=== PATIENT | male | born 1945 | race Caucasian/White ===

== ENCOUNTER → 2017-03-19 | Outpatient (CLI) | payer OTHER ==
[~2017-03-19] VITALS: Ht 185.4 cm; Wt 72.6 kg
[~2017-03-19] MED LIST: CEVIMELINE HCL30 MG PO; LEVOTHYROXIN0.112 M1 PO
--- NOTE | ~2017-03-19 | P ---
[facility] [place] [address] PROCEDURE REPORT Name: THONY DUNHAM [id number] Admission: 03/19/17 Attend Phys: Atif Barahona Discharge: Date of : 43 Report #: [id number] THIS REPORT FOR: //name// CC: Atif Leslie PROCEDURE PERFORMED: PEG tube removal and replacement at the bedside. HISTORY OF PRESENT ILLNESS: The patient is a 71-year-old male with a history of head and neck cancer and status post resection and radiation. He is PEG tube dependent for nutrition. In the past, we have proceeded with upper endoscopies and PEG tube removal and replacement; however, he has a known tight proximal esophageal stricture and during the last upper endoscopy with removal and replacement, there was a mucosal tear at the stricture site. Therefore, we discussed today instead of proceeding with an upper endoscopy to replace the PEG tube at the bedside and he was in agreement. DESCRIPTION OF PROCEDURE: The PEG tube was withdrawn through the PEG stoma with simple traction without difficulty. There was a small amount of blood noted after removal. Next a new 20-Indonesian bumper replacement of PEG was then inserted through the same fistula at the bedside without difficulty. This was then secured with an outside flange. The patient tolerated the exchange without difficulty. A 4 x 4 dressing was then placed over the area. IMPRESSION: Status post removal of old PEG and replacement of new PEG at the bedside as described above. RECOMMENDATIONS: Okay to start using new PEG at this time. Thank you for allowing me to participate in his care. <ELECTRONICALLY SIGNED> By: Atif Luz MD 03/23/17 1221 0946 2226 Atif Luz MD /nt
== END | disposition home or self-care (01) ==
LOC: GI 07:29
DX: Z43.1 Encounter for attention to gastrostomy (principal); F32.9 Major depressive disorder, single episode, unspecified; Z98.890 Other specified postprocedural states; Z87.891 Personal history of nicotine dependence; Z85.46 Personal history of malignant neoplasm of prostate; Z85.828 Personal history of other malignant neoplasm of skin; Z85.818 Personal history of malignant neoplasm of other sites of lip, oral cavity, and pharynx; Z88.2 Allergy status to sulfonamides

== ENCOUNTER → 2018-01-26 | Outpatient (CLI) | payer OTHER ==
[~2018-01-26] VITALS: Ht 185.4 cm; Wt 74.8 kg
[~2018-01-26] MED LIST changes: +SUPER BETA PROSTATE PO
--- NOTE | ~2018-01-26 | P ---
[facility] [place] [address] PROCEDURE REPORT Name: THONY DUNHAM [facility] #: [facility] [id number] Admission: 01/26/18 Attend Phys: Atif Barahona Discharge: Date of : 43 Report #: [id number] THIS REPORT FOR: //name// CC: Nany Luz Dayan Leslie DATE OF SERVICE: 01/26/2018 PROCEDURE PERFORMED: PEG removal with replacement at bedside. HISTORY OF PRESENT ILLNESS: The patient is a 72-year-old male with a history of head and neck cancer, status post surgery and radiation with a known tight esophageal stricture. He is PEG tube dependent for nutrition. His PEG tube is worn out needs to replace. He also has skin excoriation around the PEG tube site with leakage apparently. We have attempted to replace the PEG via upper endoscopy in the past; however, this was high risk due to his tight stricture and causing potential for significant esophageal tear or perforation due to his tight stricture; therefore, the plan is to replace the PEG tube at the bedside today. PHYSICAL EXAMINATION: CARDIOVASCULAR: Regular rate and rhythm. CHEST: Clear to auscultation bilaterally. ABDOMEN: Soft. He is nontender except around the PEG tube site. At approximately 2 cm in diameter there is a skin excoriation. DESCRIPTION OF PROCEDURE: The PEG tube was removed with a simple traction. There was some mild bleeding. Next, using a replacement bumper 20-Czech PEG, I was able to replace this through the PEG tube fistula without difficulty. Pressure was held in place. No further bleeding was noted. IMPRESSION: Status post PEG tube removal and replacement. RECOMMENDATIONS: 1. Okay to start using PEG tube today. 2. Because of the patient's skin excoriation, we will have Wound Care evaluate. Thank you for allowing me to participate in his care. <ELECTRONICALLY SIGNED> By: Atif Luz MD 01/29/18 0854 1133 1625 Atif Luz MD /nt
== END | disposition home or self-care (01) ==
LOC: GI 10:10
DX: Z43.1 Encounter for attention to gastrostomy (principal); K22.2 Esophageal obstruction; Z85.89 Personal history of malignant neoplasm of other organs and systems; Z87.891 Personal history of nicotine dependence; Z85.828 Personal history of other malignant neoplasm of skin; Z85.46 Personal history of malignant neoplasm of prostate; Z98.890 Other specified postprocedural states; Z88.2 Allergy status to sulfonamides

== ENCOUNTER → 2018-03-01 | Outpatient (CLI) | payer OTHER | LOC: HYPER 02-15 13:16 | DX: T81.89XA Other complications of procedures, not elsewhere classified, initial encounter (principal); L30.9 Dermatitis, unspecified; K12.1 Other forms of stomatitis; L24.9 Irritant contact dermatitis, unspecified cause; K94.23 Gastrostomy malfunction; Z85.46 Personal history of malignant neoplasm of prostate; Y83.8 Other surgical procedures as the cause of abnormal reaction of the patient, or of later complication, without mention of misadventure at the time of the procedure ==

== ENCOUNTER → 2018-03-15 | Outpatient (CLI) | payer OTHER | LOC: HYPER 06:42 | DX: T81.89XD Other complications of procedures, not elsewhere classified, subsequent encounter (principal); L30.9 Dermatitis, unspecified; K12.1 Other forms of stomatitis; K94.20 Gastrostomy complication, unspecified; K94.23 Gastrostomy malfunction; Z85.46 Personal history of malignant neoplasm of prostate; Z87.891 Personal history of nicotine dependence; Y83.8 Other surgical procedures as the cause of abnormal reaction of the patient, or of later complication, without mention of misadventure at the time of the procedure ==

== ENCOUNTER → 2018-03-22 | Outpatient (CLI) | payer OTHER | LOC: HYPER 06:44 | DX: T81.89XD Other complications of procedures, not elsewhere classified, subsequent encounter (principal); L30.9 Dermatitis, unspecified; K94.20 Gastrostomy complication, unspecified; K12.1 Other forms of stomatitis; K94.23 Gastrostomy malfunction; B36.9 Superficial mycosis, unspecified; Z85.46 Personal history of malignant neoplasm of prostate; Z87.891 Personal history of nicotine dependence; Y83.8 Other surgical procedures as the cause of abnormal reaction of the patient, or of later complication, without mention of misadventure at the time of the procedure ==

== ENCOUNTER → 2018-04-12 | Outpatient (CLI) | payer OTHER | LOC: HYPER 06:49 | DX: T81.89XD Other complications of procedures, not elsewhere classified, subsequent encounter (principal); L30.9 Dermatitis, unspecified; K12.1 Other forms of stomatitis; K94.23 Gastrostomy malfunction; B36.9 Superficial mycosis, unspecified; Z85.46 Personal history of malignant neoplasm of prostate; Z87.891 Personal history of nicotine dependence; Y83.8 Other surgical procedures as the cause of abnormal reaction of the patient, or of later complication, without mention of misadventure at the time of the procedure ==

== ENCOUNTER → 2018-04-26 | Outpatient (CLI) | payer OTHER | LOC: HYPER 06:49 | DX: T81.89XD Other complications of procedures, not elsewhere classified, subsequent encounter (principal); K12.1 Other forms of stomatitis; L30.9 Dermatitis, unspecified; K94.20 Gastrostomy complication, unspecified; B36.9 Superficial mycosis, unspecified; L03.311 Cellulitis of abdominal wall; Z85.46 Personal history of malignant neoplasm of prostate; Z87.891 Personal history of nicotine dependence; Y83.8 Other surgical procedures as the cause of abnormal reaction of the patient, or of later complication, without mention of misadventure at the time of the procedure ==

== ENCOUNTER → 2019-06-14 | Outpatient (CLI) | payer OTHER ==
[~2019-06-14] VITALS: Ht 185.4 cm; Wt 74.8 kg
--- NOTE | 2019-06-16 11:03 | P ---
[facility] [place] [address] PROCEDURE REPORT Name: THONY DUNHAM Room #: REG Maria Alejandra [place]#: [id number] Admission: 06/14/19 Attend Phys: Atif Barahona Discharge: Date of : 43 Report #: [id number] THIS REPORT FOR: //name// CC: CHEN DON DO Atif Luz DATE OF SERVICE: 06/14/2019 PROCEDURE PERFORMED: Upper endoscopy with removal of old PEG tube and replacement with new PEG tube. HISTORY OF PRESENT ILLNESS: The patient is a 73-year-old male with previous history of head and neck cancer, status post radiation and surgery with a history of tight stricture. He is completely PEG tube dependent on nutrition. His PEG tube is now old and needs to be replaced. Previously, this was done at the bedside with a bumper PEG; however, these are not available anymore. I gave the patient an option of a balloon replacement at the bedside; however, these are stiff and there is a possibility of the balloon popping which has happened to him in the past versus proceeding with an upper endoscopy and replacement with a bumper PEG. I explained that he is at an increased risk due to his head and neck cancer and scarring. We have replaced it this way in the past, but it has caused mucosal tears when the bumper is passed through his esophagus. He understood both procedures and the risks and benefits and decided to proceed with an upper endoscopy with PEG bumper replacement. DESCRIPTION OF PROCEDURE: The risks and benefits of the procedure were explained to the patient, those risks including but not limited to bleeding, perforation, the risk of sedation. He understood these risks and gave informed consent. Again, we also discussed the risk of significant mucosal tear of his esophagus at the stricture site because of his previous head and neck surgery and radiation and scarring. Sedation was given using ketamine and propofol per anesthesia. Next, using a standard Olympus upper endoscope, the scope was placed in the patient's mouth and advanced under direct vision through the esophagus, stomach and into the second portion of the duodenum. There was a narrowing in the proximal esophagus again; however, the scope did pass through here without resistance. The mid and distal esophagus was normal, although there was some narrowing in the distal esophagus as well. No evidence of esophagitis. Overall, the gastric mucosa was normal. There was some fluid within the stomach. This was aspirated away. The old PEG tube bumper was noted to be in good position in the mid body. The antrum was normal. The pylorus was normal and patent. The duodenal bulb, first and second portion were all normal. The scope was then brought back up into the patient's stomach, and the old PEG was removed by simple traction through the PEG fistula. Next, a blue guidewire was inserted through the fistula and grasped with a snare through the endoscope. The scope and wire were then brought back up to the patient's mouth. At this [address] [address] PROCEDURE REPORT Name: THONY DUNHAM Room #: GERARDO [place]#: [id number] Admission: 06/14/19 Attend Phys: Atif Barahona Discharge: Date of : 43 Report #: [id number] point, a 20-Romanian PEG tube was secured to the blue guidewire and using a pull technique was put into position without difficulty. The scope was reintroduced into the patient's stomach. There was evidence of mucosal tear primarily in the distal esophagus, not in the proximal esophagus as much, but there was some bright red blood. I waited several minutes. There was no further bleeding noted. The PEG tube bumper was again in good position in the mid body at the previous site. At this point, the scope was then withdrawn. The PEG tube was secured to the anterior abdominal wall. He also has a small amount of granulation tissue around the PEG tube, and this was treated with 3 silver nitrate sticks. The procedure was terminated. The patient tolerated the procedure well. IMPRESSION: 1. Status post removal of old PEG tube, replacement with new PEG tube. This did cause a mucosal tear in the distal esophagus as well as a mild tear in the proximal esophagus. 2. Treatment of granulation tissue around the PEG tube site with silver nitrate. RECOMMENDATIONS: Okay to start using PEG tube later today. Thank you for allowing me to participate in his care. <ELECTRONICALLY SIGNED> By: Atif Luz MD 06/16/19 1103 1119 2244 Atif Luz MD /nt
== END | disposition home or self-care (01) ==
LOC: GI 08:30
DX: Z43.1 Encounter for attention to gastrostomy (principal); Z85.819 Personal history of malignant neoplasm of unspecified site of lip, oral cavity, and pharynx; E03.9 Hypothyroidism, unspecified; Z85.46 Personal history of malignant neoplasm of prostate; Z85.3 Personal history of malignant neoplasm of breast; Z85.828 Personal history of other malignant neoplasm of skin; Z98.890 Other specified postprocedural states; Z79.899 Other long term (current) drug therapy; Z88.2 Allergy status to sulfonamides; Z87.891 Personal history of nicotine dependence
CPT/HCPCS: 62110; 62900

== ENCOUNTER 2020-02-06 21:30 | Inpatient (IN) | payer OTHER ==
[~2020-02-06] VITALS: Ht 185.4 cm; Wt 73.9 kg
[2020-02-06 21:35] VITALS: BP 118/71
[2020-02-06 22:32] LABS: ABSOLUTE NEUTROPHILS 4.9 thou/uL (1.4-8.2); BASOPHILS 0.8 % (0.0-2.0); EOSINOPHILS 0.2 % (0.0-3.0); HEMATOCRIT 47.8 % (42.0-52.0); HEMOGLOBIN 15.9 gm/dL (14.0-18.0); LYMPHOCYTES 8.4 % (24.0-44.0); MCHC 33.2 g/dL (28.0-37.0); MCV 90.4 fL (80.0-100.0); MONOCYTES 2.2 % (1.0-8.0); PLATELET COUNT 183 thou/uL (150-400); POLYS 88.4 % (36.0-66.0); RBC 5.29 mil/uL (4.50-6.00); RDW 13.3 % (10.5-14.5); WBC 5.6 thou/uL (4.0-11.0)
[2020-02-06 22:33] LABS: ANION GAP 9 mmol/L (7-16); BUN 23 mg/dL (7-18); CALCIUM 9.1 mg/dL (8.5-10.1); CHLORIDE 103 mmol/L (98-107); CO2 28 mmol/L (21-32); CREATININE 1.1 mg/dL (0.7-1.3); GLUCOSE 159 mg/dL (74-106); POTASSIUM 3.7 mmol/L (3.5-5.1); SODIUM 140 mmol/L (136-145)
[2020-02-06 22:43] LABS: ALBUMIN 3.9 g/dL (3.4-5.0); MAGNESIUM 1.8 mg/dL (1.8-2.4); SGOT 29 U/L (15-37); SGPT 23 U/L (30-65); TOTAL BILIRUBIN 0.9 mg/dL (<0.1-1.0); TOTAL PROTEIN 7.8 g/dL (6.4-8.2); TROPONIN-I <0.06 ng/mL (<0.06)
[2020-02-06 22:43] LABS: BE(vivo) 1.1 mmol/L (-2 to +3); HCO3 26.9 mmol/L (22.0-26.0); PCO2 46.8 mmHg (35.0-45.0); PO2 65.6 mmHg (80.0-100.0); pH 7.377 (7.360-7.450); sO2 92.4 % (92.0-98.0)
[2020-02-07] VITALS (17 sets, daily range): BP systolic 106–187; BP diastolic 64–98
--- NOTE | 2020-02-07 00:39 | NUR ---
SHIRT CLOSER CALLED IN PATIENT UNIT TO GIVE REPORT TO RECIEVING NURSE, WAS TOLD NURSE (TYRONE) WAS PERFORMING PT CARE AND WILL RETURN CALL CONCHITA.
[2020-02-07 01:12] LABS: URINE BILIRUBIN NEGATIVE (Negative); URINE BLOOD NEGATIVE (Negative); URINE CLARITY CLEAR; URINE COLOR YELLOW; URINE GLUCOSE-RANDOM* NEGATIVE (Negative); URINE KETONES NEGATIVE (Negative); URINE LEUKOCYTES-REFLEX NEGATIVE (Negative); URINE NITRITE-REFLEX NEGATIVE (Negative); URINE PROTEIN (DIPSTICK) NEGATIVE (Negative); URINE UROBILINOGEN 0.2 E.U./dl (0.2-1.0)
[2020-02-07 06:43] LABS: HEMATOCRIT 39.5 % (42.0-52.0); MCH 30.2 pg (26.0-34.0); MCHC 33.2 g/dL (28.0-37.0); RBC 4.34 mil/uL (4.50-6.00); RDW 13.4 % (10.5-14.5); WBC 2.8 thou/uL (4.0-11.0)
[2020-02-07 06:46] LABS: CALCIUM 8.6 mg/dL (8.5-10.1); CREATININE 1.2 mg/dL (0.7-1.3); HEMOGLOBIN 13.1 gm/dL (14.0-18.0)
[2020-02-07 08:15] LABS: BE(vivo) -3.7 mmol/L (-2 to +3); HCO3 21.4 mmol/L (22.0-26.0); PCO2 39.2 mmHg (35.0-45.0); PO2 207.5 mmHg (80.0-100.0); pH 7.355 (7.360-7.450); sO2 99.4 % (92.0-98.0)
[2020-02-07 08:55] LABS: ATYPICAL LYMPHS 4 %; METAMYELOCYTES 4 %
[2020-02-07 08:57] LABS: PLATELET ESTIMATE SLIGHTLY DECREASED
[2020-02-07 09:51] LABS: PLATELET COUNT 106 thou/uL (150-400)
--- NOTE | 2020-02-07 11:34 | NUR ---
LAB CALLED WITH A DELTA VALUE FOR PLATELETS. VALUE NOTED AND DR. WOODSON WAS ON THE UNIT AND MADE AWARE .
--- NOTE | 2020-02-07 12:49 | NUR ---
0900- PT'S PHILIP DUNHAM CALLED THIS AM AND GOT UPDATE ON PT.
--- NOTE | 2020-02-07 13:26 | NUR ---
Chart reviewed and case discussed with the care team. Unable to speak with the pt at this time as he is transfering out of ICU to . His o2 needs have improved and he is now on 3liters of O2 per nc. Pt is Covid pending and positive Flu A. The ICU nurse has updated the pt's Amisha twice today on his progress and transfer to . She has provided cm contact infor should pt's spouse have any questions or concerns regarding his dc planning needs. Nursing reports the pt is A&ox4 and indep with gait and adl's at this time. He has a hx of head/neck cancer s/p resection with a permenent peg tube d/t dysphagia. The pt manages his own bolus tube feedings with two cans of Ensure plus TID. His recently had the flu A and was not tested for Covid 19. She did not require hospital care and is doing well at this time. Will follow along and reattempt to touch base with the pt again prior to dc.
--- NOTE | 2020-02-07 13:37 | NUR ---
PT TRANSFERED. TO ROOM 355. REPORT CALLED TO PRITESH PINA. PT'S PHILIP CALLED AND UPDATED
--- NOTE | 2020-02-07 14:27 | EKG ---
[facility] [place] [address] ELECTROCARDIOGRAM REPORT Name: THONY DUNHAM Room #: [facility]- ADM IN M.R.#: [id number] Admission: 02/06/20 Attend Phys: Abdifatah Astudillo MD Discharge: Date of : 43 Report #: [id number] THIS REPORT FOR: cc: RAINA - No family physician/PCP RAINA - No family physician/PCP Jone Garcia MD [facility] THIS REPORT FOR: //name// [facility] ED Test Date: 2020-02-06 Test Time: 21:53:46 Pat Name: THONY DUNHAM Department: Room: [facility] Gender: M Sort Line: RGITHAIDEANNA : 1945 Requested By: Dagoberto Byrd Order Number: [id number] MD: Jone Garcia Measurements Intervals [place] Rate: 122 P: 52 NV: 162 QRS: 80 QRSD: 125 T: 6 QT: 332 QTc: 473 Interpretive Statements Sinus tachycardia Right bundle branch block Compared to ECG 02/29/2004 09:59:22 Right bundle-branch block now present Prolonged QT interval no longer present Electronically Signed On 02-07-2020 14:26:27 CDT by Jone Garcia [email or web address] <ELECTRONICALLY SIGNED> By: Jone Garcia MD, [facility] 02/07/20 1426 2153 215 Jone Garcia MD, [facility] /EPI
--- NOTE | 2020-02-07 14:37 | NUR ---
PATIENT ADMITTED TO ROOM AT THIS TIME. HE IS ALERT ORINTED X4. DENIES PAIN OR DISTRESS. RESPIRATIONS ARE NON LABORED. ON OXYGEN 3L AND O2 SAT HAS REMAINED ABOVE 94%. PLEASANT WITH CARES. WILL CONT WITH PLAN OF CARES.
[2020-02-08 02:07] LABS: GLYCOHEMOGLOBIN (HGB A1C) 5.3 % (4.8-5.6)
--- NOTE | 2020-02-08 06:49 | NUR ---
ASSESSMENT: PT REMAIN ALERT AND ORIENT TIMES THREE. PT APPEARS A LITTLE DEPRESSED WITH BEING "MOVED AROUND THE HOSPITAL". VSS, AFEBRILE, COVID-[address] PER MONITOR, HR 100. PEG TUBE PATENT, SLOW PROGRESS, WILL CONTINUE TO MONITOR.
[2020-02-08 07:02] VITALS: BP 137/83
[2020-02-08 08:28] LABS: HEMATOCRIT 38.5 % (42.0-52.0); HEMOGLOBIN 12.9 gm/dL (14.0-18.0); MCH 30.1 pg (26.0-34.0); MCHC 33.6 g/dL (28.0-37.0); MCV 89.5 fL (80.0-100.0); PLATELET COUNT 102 thou/uL (150-400); RDW 13.4 % (10.5-14.5); WBC 5.6 thou/uL (4.0-11.0)
[2020-02-08 08:35] LABS: ALBUMIN 2.6 g/dL (3.4-5.0); CALCIUM 9.3 mg/dL (8.5-10.1); CREATININE 0.8 mg/dL (0.7-1.3); TOTAL BILIRUBIN 0.5 mg/dL (<0.1-1.0); TOTAL PROTEIN 6.2 g/dL (6.4-8.2)
[2020-02-08 08:57] LABS: ABSOLUTE NEUTROPHILS 4.4 thou/uL (1.4-8.2); METAMYELOCYTES 2 %
[2020-02-08 08:58] LABS: ANISOCYTOSIS SLIGHT
--- NOTE | 2020-02-08 10:05 | EKG ---
[facility] [place] [address] ELECTROCARDIOGRAM REPORT Name: THONY DUNHAM Room #: 218- ADM IN M.R.#: [id number] Admission: 02/06/20 Attend Phys: Abdifatah Astudillo MD Discharge: Date of : 43 Report #: [id number] THIS REPORT FOR: cc: RAINA - Jody family physician/PCP RAINA - No family physician/PCP Jone Garcia MD [facility] THIS REPORT FOR: //name// [facility] Test Date: 2020-02-08 Test Time: 09:34:14 Pat Name: THONY DUNHAM Department: Room: 218 Gender: M Director Of Enrollment: James RIZVI : 1945 Requested By: Abdifatah Astudillo Order Number: [id number] MD: Jone Garcia Measurements Intervals [place] Rate: 114 P: [place]: QRS: 51 QRSD: 78 T: 39 QT: 332 QTc: 458 Interpretive Statements Atrial fibrillation Early R wave progression Compared to ECG 02/06/2020 21:53:46 Sinus tachycardia no longer present Right bundle-branch block no longer present Electronically Signed On 02-08-2020 10:03:30 CDT by Jone Garcia [email or web address] <ELECTRONICALLY SIGNED> By: Jone Garcia MD, [facility] 02/08/20 1003 0934 0934 Jone Garcia MD, [facility] /EPI
[2020-02-08 11:32] VITALS: BP 133/73
--- NOTE | 2020-02-08 11:38 | 2DMMODE ---
[facility] [place] [address] 2 D/M-MODE ECHOCARDIOGRAM Name: THONY DUNHAM Room #: 218-P ADM IN M.R.#: [id number] Admission: 02/06/20 Attend Phys: Abdifatah Astudillo MD Discharge: Date of : 43 Report #: [id number] THIS REPORT FOR: cc: FAM - No family physician/PCP FAM - No family physician/PCP Stefan Cuevas MD ~ APPROVED REPORT Study performed: 02/08/2020 10:42:47 EXAM: Comprehensive 2D, Doppler, and color-flow Echocardiogram Patient Location: Bedside Room #: 218 Status: routine BSA: 1.99 HR: 120 bpm BP: 137/83 mmHg Rhythm: Atrial Fibrillation Other Information Study Quality: Good Indications Atrial Fibrillation 2D Dimensions RVDd: 25.63 mm IVSd: 10.79 (7-11mm) LVOT Diam: 21.40 (18-24mm) LVDd: 42.68 mm PWd: 11.29 (7-11mm) Ascending Ao: 35.09 (22-36mm) LVDs: 31.55 (25-40mm) Aortic Root: 35.56 mm Volumes Left Atrial Volume (Systole) Single Plane 4CH: 35.13 mL Single Plane 2CH: 30.88 mL LA ESV Index: 19.00 mL/m2 Aortic Valve AoV Peak Yazan.: 1.63 m/s AO Peak Gr.: 16.02 mmHg LVOT Max P.93 mmHg LVOT Max V: 1.39 m/s SHIKHA Vmax: 3.07 cm2 [facility] [address] [place] [address] 2 D/M-MODE ECHOCARDIOGRAM Name: THONY DUNHAM Room #: 218-P ADM IN ..#: [id number] Admission: 02/06/20 Attend Phys: Abdifatah Astudillo MD Discharge: Date of : 43 Report #: [id number] Mitral Valve MV Decel. Time: 189.28 ms MV E Max Yazan.: 1.33 m/s Pulmonary Valve PV Peak Yazan.: 0.99 m/s PV Peak Gr.: 3.92 mmHg Tricuspid Valve TR Peak Yazan.: 2.34 m/s TR Peak Gr.: 22.00 mmHg Left Ventricle The left ventricle is normal size. There is normal LV segmental wall motion. There is normal left ventricular wall thickness. Left ventricular systolic function is normal. LVEF is 60%. This study is not technically sufficient to allow evaluation of the LV diastolic function due to atrial fibrillation. Right Ventricle The right ventricle is normal size. The right ventricular systolic function is normal. Atria The left atrium size is normal. The right atrium size is normal. Aortic Valve The aortic valve is normal in structure. Leaflets are thickened and calcified. No aortic regurgitation is present. There is no aortic valvular stenosis. Mitral Valve The mitral valve is normal in structure. Moderate mitral annular calcification. Trace mitral regurgitation. No evidence of mitral valve stenosis. Tricuspid Valve The tricuspid valve is normal in structure. Trace tricuspid regurgitation. Estimated PAP is 22mmHg plus the right atrial pressure. Pulmonic Valve Pulmonic valve is not well visualized. Great Vessels The aortic root is normal in size. The ascending aorta is normal in [facility] [address] [place] [address] 2 D/M-MODE ECHOCARDIOGRAM Name: THONY DUNHAM Room #: 218-P [facility] IN [facility]#: [id number] Admission: 02/06/20 Attend Phys: Abdifatah Astudillo MD Discharge: Date of : 43 Report #: [id number] size. IVC is not well visualized. Pericardium There is no pericardial effusion. <Conclusion> The left ventricle is normal size. There is normal left ventricular wall thickness. Left ventricular systolic function is normal. The right ventricle is normal size. The left atrium size is normal. The aortic valve is normal in structure. Leaflets are thickened and calcified. The mitral valve is normal in structure. Moderate mitral annular calcification. Trace tricuspid regurgitation. Estimated PAP is 22mmHg plus the right atrial pressure. <ELECTRONICALLY SIGNED> By: Stefan Cuevas MD 02/08/20 1136 1136 1136 Stefan Cuevas MD /INF
[2020-02-08 17:24] VITALS: BP 152/69
--- NOTE | 2020-02-08 18:35 | NUR ---
RECEIVED PT'S CARE AROUND 0720; PT. ON BED; AOX4; PT. POSITIVE FOR INFLUENZA A; PT. NO IN ISOLATION; ISOLATION CAR & SIGNED PUT OUTSIDE OF ROOM; AROUND 0840 PT'S HR ON ELEVATED; 130s-150s; EKG ORDERED PER PROTOCOL; PHYSICIAN PAGED; ORDERS RECEIVED; DR. WEISS ROUNDING; ORDERS RECEIVED; IV MEDICATION GIVEN; HR DECREASE TO 110s; SBP ON THE 130s; AM MEDICATION GIVEN; NO C/O PAIN; AROUND NOON HEART MONITOR SHOWED SR; DR. TAYLOR NOTIFIED DURING ROUNDING; MONITORING; FAMILY, & SON, UPDATE ABOUT PT'S HEALTH; ST. UNDERSTANDING; ENSURANCE GIVEN THROUGH FEEDING TUBE AROUND 1100 & 1700; REFUSED EARLY ON THE AFTERNOON; EDUCATED ABOUT FALL PREVENTION; ST. UNDERSTANDING; ASSESSMENT CHARGED; FOLLOWING POC; WILL PASS ON REPORT;
[2020-02-08 19:38] VITALS: BP 159/68
[2020-02-09 04:20] VITALS: BP 143/83
[2020-02-09 05:01] LABS: CALCIUM 8.8 mg/dL (8.5-10.1); CREATININE 0.8 mg/dL (0.7-1.3); POTASSIUM 3.8 mmol/L (3.5-5.1)
[2020-02-09 05:26] LABS: HEMATOCRIT 37.2 % (42.0-52.0); HEMOGLOBIN 12.6 gm/dL (14.0-18.0); MCH 30.5 pg (26.0-34.0); MCHC 33.9 g/dL (28.0-37.0); MCV 89.9 fL (80.0-100.0); RBC 4.14 mil/uL (4.50-6.00); RDW 13.5 % (10.5-14.5); WBC 6.9 thou/uL (4.0-11.0)
--- NOTE | 2020-02-09 06:42 | NUR ---
PROGRESS PT A/O X4 UP WITH SBA GAIT STEADY. VSS. PEG TUBE INTACT FLUSHES WITHOUT DIFFICULTY. STOMACH CONTENTS CHECKED TUBE FEED NOTED IN MODERATE QUANTITIES . PT BOLUS' SELF QID 2 BOTTLES OF ENSURE AND FLUSH WATER TO FOLLOW GIVEN INDEPENDENTLY BY PT. HAS BEEN SELF CARING FOR HIS PEG TUBE FOR 17 YEARS. IV ANTIBIOTICS ADMINISTERED ORDERED, PT DENIES PAIN, ON 1 TO 3 LITERS OF O2 TITRATED DOWN TO 1 LITER. PT HOPES TO DC HOME TODAY.
[2020-02-09 07:30] VITALS: BP 133/52; BP 138/71; BP 139/71
--- NOTE | 2020-02-09 12:08 | NUR ---
Pt is progressing and may be dc'd to home later today. He is weaning off o2 and up ad vanesa in his room. No dc needs noted at this time.
[2020-02-09 16:30] VITALS: BP 127/73
--- NOTE | 2020-02-09 18:06 | NUR ---
RECEIVED PT'S CARE AROUND 0720; PT. ON BED; AOX4; DURING AM ASSESSMENT NO C/O PAIN; ST ON THE MONITOR; AFIB; SCHEDULED MEDICATION GIVEN; DR. TAYLOR NOTIFIED DURING ROUNDING; ORDERS ON PLACED; INCREASE COARSE & WHEEZING SOUND OVER LUNGS DURING ASSESSMENT; DR. WEISS NOTIFIED DURING ROUNDING; ORDERS RECEIVED; IS ORDERED PER HOSPITALIST; REFUSED ENSURANCE FEEDING DURING AM ASSESSMENT & AROUND 1100; HAD ENSURANCE EARLY ON THE AFTERNOON; REFUSED IT AT 1730; ABLE TO AMBULATE WITHOUT ASSISTANCE; EDUCATED ABOUT FALL PREVENTIONS; ST. UNDERSTANDING; 02 TITRATE TO 1L; 02 SAT ABOVE 93%; MONITORING; ASSESSMENT CHARGED; FOLLOWING POC; WILL PASS ON REPORT;
[2020-02-09 22:10] VITALS: BP 124/70
--- NOTE | 2020-02-10 05:01 | NUR ---
NO EVENTS OVERNIGHT. PT SLEPT WELL. DENIES PAIN. DENIES NAUSEA/ VOMITING. VSS. PT REFUSED ENSURE PEG TUBE FEEDING LAST NIGHT. NO OTHER C/O. WILL CONTINUE TO MONITOR.
[2020-02-10 05:23] VITALS: BP 123/76
[2020-02-10 05:58] LABS: HEMATOCRIT 37.7 % (42.0-52.0); HEMOGLOBIN 12.7 gm/dL (14.0-18.0); MCH 30.1 pg (26.0-34.0); MCHC 33.7 g/dL (28.0-37.0); MCV 89.4 fL (80.0-100.0); RBC 4.22 mil/uL (4.50-6.00); RDW 13.4 % (10.5-14.5); WBC 6.7 thou/uL (4.0-11.0)
[2020-02-10 06:13] LABS: CALCIUM 9.3 mg/dL (8.5-10.1); CREATININE 0.8 mg/dL (0.7-1.3); POTASSIUM 3.9 mmol/L (3.5-5.1)
[2020-02-10 07:50] VITALS: BP 152/80
[2020-02-10 10:40] VITALS: BP 147/80
--- NOTE | 2020-02-10 15:43 | NUR ---
Assumed pt care at 7am.Pt in bed resting with o2 on at 1 Liter nc.Assessment completed.vss.Pt tolerated med with bolus tube feeding.Dr Li here,order noted.Pt will possibly dc in am if stable.No verbal c/o at present.Will continue to monitor.
[2020-02-10 16:00] VITALS: BP 151/74
[2020-02-10 20:42] VITALS: BP 127/71
[2020-02-10 20:43] VITALS: BP 127/71
--- NOTE | 2020-02-11 03:23 | NUR ---
ASSUMED CARE 1900. PT LAERT AND ORIENTED. VS. PT FLAT AFFECT. REFUSED ENSURE TUBE FEEDING AT HS. DENIES PAIN. HR CONTROLLED. NO CHEST PAIN. REMAINS IN SR. WILL CONTINUE TO MONITOR.
[2020-02-11 05:00] VITALS: BP 164/79
[2020-02-11 07:29] VITALS: BP 158/77
[2020-02-11 16:08] VITALS: BP 168/77
[2020-02-11 17:00] VITALS: BP 147/76
--- NOTE | 2020-02-11 17:58 | NUR ---
ASSUMED CARE PT SHIFT CHANGE. ASSESSMENT CHARTED. MEDS GIVEN PER DEC. PT ALERT AND ORIENTED. VSS. DENIES PAIN. O2 SATS WNL ON 2-4L. REST AND EXERCISE PERFORMED PER RT, PT REQUIRING O2 2L AT REST AND 4L WITH ACTIVITY. DENIES SOB. SR ON MONITOR. MEDS GIVEN PER TUBE. ENSURE GIVEN PER TUBE, PT TOLERATING FAIR. PT DID NOT WANT ENSURE CANS FOR LUNCH OR DINNER. TAMIFLU GIVEN PER ORDERS. PT HAD LOW GRADE FEVER- TYLENOL GIVEN-- FEVER RESOLVED. PT UP AD SACHIN IN ROOM TOLERATING WELL. HOPEFUL TO DC HOME TOMORROW. CONTINUING TO MONITOR FOR NEEDS AND FOLLOWING POC.
[2020-02-11 20:10] VITALS: BP 138/74
[2020-02-12 04:51] VITALS: BP 138/74
--- NOTE | 2020-02-12 05:38 | NUR ---
PT RESTING QUIETLY IN ROOM THRU THE NOC, O2 SATS 94% ON 4L/NC, MEDS GIVEN THRU PEG PER MAR, PT DOES OWN PEG CARE, WILL CON' TO MONITOR PER PPPV
[2020-02-12 08:00] VITALS: BP 112/91
[2020-02-12 08:40] VITALS: BP 137/66
[2020-02-12 11:08] LABS: HEMATOCRIT 38.7 % (42.0-52.0); HEMOGLOBIN 12.9 gm/dL (14.0-18.0); MCH 29.8 pg (26.0-34.0); MCHC 33.4 g/dL (28.0-37.0); MCV 89.2 fL (80.0-100.0); PLATELET COUNT 213 thou/uL (150-400); RBC 4.34 mil/uL (4.50-6.00); RDW 13.5 % (10.5-14.5); WBC 7.1 thou/uL (4.0-11.0)
[2020-02-12 11:17] LABS: ALBUMIN 2.3 g/dL (3.4-5.0); CALCIUM 8.7 mg/dL (8.5-10.1); CREATININE 0.8 mg/dL (0.7-1.3); MAGNESIUM 2.1 mg/dL (1.8-2.4); POTASSIUM 3.5 mmol/L (3.5-5.1); TOTAL BILIRUBIN 0.5 mg/dL (<0.1-1.0); TOTAL PROTEIN 5.8 g/dL (6.4-8.2)
[2020-02-12 11:38] LABS: ABSOLUTE NEUTROPHILS 5.9 thou/uL (1.4-8.2); ANISOCYTOSIS SLIGHT
[2020-02-12 12:00] VITALS: BP 74/54
[2020-02-12 13:00] VITALS: BP 108/63
--- NOTE | 2020-02-12 16:42 | NUR ---
PT CARE ASSUMED APPROX 0700. ASSESSMENT CHARTED. DENIES PAIN. REPORTS SOA WITH EXERTION. VSS. UP WITH STEADY GAIT. UNABLE TO WEAN O2 THIS SHIFT. PT REPORTS DIARRHEA. ORDERS TO R/O CDIFF AT THIS TIME. LOMOTIL ON HOLD UNITL NEGATIVE RESULTS RECEIVED. PT AWARE. PT ALSO REPORTS PAIN AND REDNESS AT PEG SITE. NURSE CONFIRMED. ORDERS FOR ANTIBIOTIC OINTMENT RECEIVED. PT REFUSED NOON TUBE FEEDING BOLUS. EDUCATED. PT TOLERATING POC. DENIES QUESTIONS OR CONCERNS REGARDING POC. NO DISTRESS NOTED AT THIS TIME.
[2020-02-12 20:07] VITALS: BP 153/81
[2020-02-13 05:06] VITALS: BP 140/70
[2020-02-13 05:28] LABS: ALBUMIN 2.4 g/dL (3.4-5.0); CALCIUM 9.2 mg/dL (8.5-10.1); POTASSIUM 3.8 mmol/L (3.5-5.1); TOTAL BILIRUBIN 0.3 mg/dL (<0.1-1.0); TOTAL PROTEIN 7.7 g/dL (6.4-8.2)
[2020-02-13 05:34] LABS: ABSOLUTE NEUTROPHILS 5.7 thou/uL (1.4-8.2); BASOPHILS 0.3 % (0.0-2.0); EOSINOPHILS 0.1 % (0.0-3.0); HEMATOCRIT 42.3 % (42.0-52.0); HEMOGLOBIN 14.1 gm/dL (14.0-18.0); LYMPHOCYTES 6.5 % (24.0-44.0); MCH 30.2 pg (26.0-34.0); MCHC 33.3 g/dL (28.0-37.0); MCV 90.6 fL (80.0-100.0); MONOCYTES 1.7 % (1.0-8.0); POLYS 91.4 % (36.0-66.0); RBC 4.67 mil/uL (4.50-6.00); RDW 13.5 % (10.5-14.5); WBC 6.2 thou/uL (4.0-11.0)
[2020-02-13 06:01] LABS: PLATELET COUNT 302 thou/uL (150-400)
--- NOTE | 2020-02-13 06:25 | NUR ---
Pt. stated he slept well during the night. Afebrile. Cont. on droplet precaution for influenza A and special contact to R/O c diff.No bm this shift, unable to collect stool specimen. Kept NPO per order , meds given per peg tube. Maintaining o2 sat in the upper 90's on 5L/NC. No respiratory distress. Voiding per urinal. Making progress towards care plan goals.
[2020-02-13 09:00] VITALS: BP 115/71
[2020-02-13 09:20] VITALS: BP 115/71
[2020-02-13 11:40] VITALS: BP 96/55
--- NOTE | 2020-02-13 15:48 | NUR ---
Patient not stable for discharge today. Lives in independent home with . Cont with need for oxygen. Patient rec sat/excer 02/10 but will need new sat/excercise prior to dc for need for possible home oxygen. casemgt following.
[2020-02-13 16:30] VITALS: BP 106/63
--- NOTE | 2020-02-13 17:36 | NUR ---
PT CARE ASSUMED AT SHIFT CHANGE. PT ASSESSMENTS CHARTED. PT MEDICATION CHARTED, CRUSHED ADMINISTERED VIA PEG TUBE. TWO ENSURE MIXED VIA WATER AT BREAKFAST ADMINISTERED VIA PEG TUBE. PT REFUSED ALL OTHER MEALS. NEW GAUZE FOR PEG TUBE POST BACITRACIN APPLICATION , EXTRA IN ROOM.
[2020-02-14 04:35] VITALS: BP 114/51
--- NOTE | 2020-02-14 06:11 | NUR ---
Pt. stated he slept fair during the night. Denies any pain. C diff is negative off special contact isolation.No bm this shift. Maintaining O2 sat in the mid to upper 90's on 4L/NC. Kept NPO per order. Meds per peg tube. Voiding per urinal. Bed alarm for safety. Making progress towards care plan goals.
[2020-02-14 07:10] VITALS: BP 113/60
--- NOTE | 2020-02-14 13:39 | NUR ---
Sp with patient over the phone he resides at home with . He is agreeable to HH if needed at dc and no preference for a company. Patient aware possible need for home oxygen and no preference for company.
[2020-02-14 15:47] VITALS: BP 113/60
--- NOTE | 2020-02-14 15:47 | NUR ---
FAXED REFERRAL TO [facility] SPOKE WITH LE IN INTAKE SHE RECEIVED REFERRAL AND CAN ACCEPT AT DC. DP TO FOLLOW.
[2020-02-14 16:15] VITALS: BP 110/57
--- NOTE | 2020-02-14 17:55 | NUR ---
RECEIVED PT'S CARE AROUND 0735; PT. ON BED; AOX4; DURING AM ASSESSMENT NO C/O PAIN; AM MEDICATIONS GIVEN; 02 TITRATE TO 2L; 02 SAT 98%; MONITORING; SR ON THE MONITOR; EDUCATED ABOUT USING O2 WHEN AMBULATING; NO ANSWER BACK; 02 TITRATE TO RA; 02 SAT 98% ON RA; NO C/O SOB; ORDERS ON PLACE TO D/C TELEMETRY; CARDIOLOGY NOTIFIED; OK TO D/C TELEMETRY; PT. FED HIMSELF DURING AM; C/O DIARRHEA; PRN MEDICATION GIVEN; RE-ASSESSMENT PTIan ST. HAVING SOME DIARRHEA; ASSESSMENT CHARTED; FOLLOWING POC; WILL PASS ON REPORT;
[2020-02-14 19:25] VITALS: BP 116/59
[2020-02-15] VITALS (8 sets, daily range): BP systolic 105–120; BP diastolic 60–64
--- NOTE | 2020-02-15 05:11 | NUR ---
Pt. slept fair during the night. Tolerating room air well with O2 sat in the mid 90's. No respiratory distress. Afebrile , off isolation. Kept NPO. Voiding per urinal. Making progress towards care plan goals.
[2020-02-15] MEDS ORDERED: CEFUROXIME500 MG PO (11:33)
[2020-02-15] MEDS ORDERED: LEVALBUTER1.25 MG/0. INH (11:33)
[2020-02-15] MEDS ORDERED: MELATONIN5 M1 PO (11:33)
[2020-02-15] MEDS ORDERED: FELODIPINE 5 MG5 M1 PO (11:33)
[2020-02-15] MEDS ORDERED: ATENOLOL 25 MG25 M1 PER TUBE (11:33)
[2020-02-15] MEDS ORDERED: PREDNISONE 5 MG5 MG PO (11:33)
[2020-02-15] MEDS ORDERED: XARELTO20 MG PO (11:33)
--- NOTE | 2020-02-15 11:47 | NUR ---
RECEIVED PT'S CARE AROUND 0720; PT. ON BED; AOX4; DURING AM ASSESSMENT NO C/O PAIN; AM MEDICATIONS GIVEN; EXPLAINED ABOUT D/C PROCESS IN CASE IT MIGHT HAPPENED; ST. UNDERSTANDING; ST. HAD ENSURANCE DURING AM, BEFORE AM ASSESSMENT; VS WNL; EDUCATED ABOUT PRN MEDICATION; NO ANSWER BACK; ST. HAVING SOME DIARRHEA; PRN MEDICATIN GIVEN; AFTER PHYSICIAN ROUNDING PT. REMAINED ABOUT D/C PROCESS; ST. UNDERSTANDING; D/C ORDERS ON PLACE; PT. NOTIFIED; SUPERINTENDENT TESTS UPDATE ABOUT POC; ASSESSMENT CHARGED; FOLLOWED POC; WORKING ON D/C ORDERS;
--- NOTE | 2020-02-15 13:13 | NUR ---
Oxygen referral canceled as the pt is off o2 today and his ra and exer sats were above 90%. Pt is glad he will not need it at home. He indicates that his will be picking him up today. He is agreeable to HH RN f/u. [employer] has faxed the orders and confirmed with Tory Schaeffer for HH RN f/u visits. Case closed.
--- NOTE | 2020-02-15 13:47 | NUR ---
FAXED DC ORDERS/SUMMARY TO [facility] SPOKE WITH LE IN INTAKE SHE RECEIVED ORDERS AND WILL NOTIFY PT TIME OF VISITS.
== END 2020-02-15 13:14 | disposition home health service (06) | DRG 871 ==
LOC: ER 21:30 → ICU 23:45 → EROBS 23:45 → 2N 23:45 → EROBS 02-07 01:05 → ICU 02-07 01:57 → 2N 02-07 10:39 → 3W 02-07 14:31 → 2N 02-07 18:28
PROVIDERS: Emergency Medicine; Internal Medicine; Nurse Practitioner Family; Pediatrics; ADMIT Hospitalist
DX: A41.9 Sepsis, unspecified organism (principal); J96.01 Acute respiratory failure with hypoxia; J96.02 Acute respiratory failure with hypercapnia; J10.08 Influenza due to other identified influenza virus with other specified pneumonia; J12.9 Viral pneumonia, unspecified; E46 Unspecified protein-calorie malnutrition; E03.9 Hypothyroidism, unspecified; I10 Essential (primary) hypertension; R47.02 Dysphasia; C06.9 Malignant neoplasm of mouth, unspecified; D64.9 Anemia, unspecified; G47.00 Insomnia, unspecified; Z20.828 Contact with and (suspected) exposure to other viral communicable diseases; I48.0 Paroxysmal atrial fibrillation; Z85.89 Personal history of malignant neoplasm of other organs and systems; Z93.1 Gastrostomy status; Z88.2 Allergy status to sulfonamides; Z87.891 Personal history of nicotine dependence; Z92.3 Personal history of irradiation; Z85.46 Personal history of malignant neoplasm of prostate; Z68.21 Body mass index [BMI] 21.0-21.9, adult
CPT/HCPCS: 10081; 10797

== ENCOUNTER → 2020-03-07 | Outpatient (CLI) | payer OTHER ==
[~2020-03-07] MED LIST changes: +ATENOLOL 25 MG25 M1 PER TUBE; +CEFUROXIME500 MG PO; +FELODIPINE 5 MG5 M1 PO; +LEVALBUTER1.25 MG/0. INH; +MELATONIN5 M1 PO; +PREDNISONE 5 MG5 MG PO; +XARELTO20 MG PO
== END ==
LOC: SJCVC 09:23
DX: R00.1 Bradycardia, unspecified (principal); I48.0 Paroxysmal atrial fibrillation; I10 Essential (primary) hypertension; I25.10 Atherosclerotic heart disease of native coronary artery without angina pectoris; Z79.899 Other long term (current) drug therapy; Z87.891 Personal history of nicotine dependence

== ENCOUNTER → 2020-03-12 | Outpatient (CLI) | payer OTHER | LOC: SJCVCIMAG 08:47 | DX: I48.0 Paroxysmal atrial fibrillation (principal); R00.0 Tachycardia, unspecified; I10 Essential (primary) hypertension; I25.10 Atherosclerotic heart disease of native coronary artery without angina pectoris; Z79.899 Other long term (current) drug therapy; Z87.891 Personal history of nicotine dependence ==

== ENCOUNTER → 2020-09-10 | Outpatient (CLI) | payer OTHER | LOC: SJCVC 11:23 | PROVIDERS: ATTEND Internal Medicine Cardiovascular Disease | DX: I48.0 Paroxysmal atrial fibrillation (principal); R94.31 Abnormal electrocardiogram [ECG] [EKG]; I10 Essential (primary) hypertension; I25.10 Atherosclerotic heart disease of native coronary artery without angina pectoris; Z79.899 Other long term (current) drug therapy; Z87.891 Personal history of nicotine dependence ==